=== PATIENT | male | born 1980 | race Caucasian/White ===

== ENCOUNTER → 2019-10-27 06:38 | Outpatient (CLI) | payer OTHER, SELFPAY ==
--- NOTE | 2019-10-27 | DI.MRI.S_ITS ---
PROCEDURE: MR FOOT RT WO CON INDICATIONS: Metatarsalgia, unspecified foot. TECHNIQUE: Noncontrast sagittal T1 spin echo and T2 fast spin echo with fat saturation, long-axis T1 spin echo and T2 fast spin echo with fat saturation, short-axis T1 spin echo and T2 fast spin echo with fat saturation through the forefoot. COMPARISON: None. FINDINGS: Image quality: Excellent. Bones and joints: No bone marrow contusions or metatarsal stress fractures. The sesamoid bones appear in expected positions, without internal edema. Mild 1st metatarsophalangeal joint degeneration. No intraosseous lesions. Soft tissues: There is mild possible synovial T2 hyperintensity at the 5th MTP joint. There are small 1 mm marrow signal changes present in the 5th metatarsal head. IMPRESSION: No evidence of metatarsal stress fracture Subtle marrow signal changes and borderline synovial T2 hyperintensity at the 5th MTP joint which could represent low-grade osteoarthritis however cannot exclude early inflammatory arthropathy. Recommend correlation with dedicated radiographs. Mild 1st MTP osteoarthritis Dictated by: Valdez Sparks M.D. on 10/27/2019 at 10:08 Approved by: Valdez Sparks M.D. on 10/27/2019 at 10:43
== END ==
DX: M77.41 Metatarsalgia, right foot (principal); M19.071 Primary osteoarthritis, right ankle and foot
CPT/HCPCS: 73718